=== PATIENT | male | born 1965 | race Asian ===

== ENCOUNTER 2017-09-28 17:29 | Emergency (ER) | payer SELFPAY ==
[2017-09-28 17:34] VITALS: BP 152/85
--- NOTE | 2017-09-28 20:45 | Emergency Department Report ---
ED Medical Clearance HPI - General Chief complaint: Medical Clearance Stated complaint: BLOOD PRESSURE HIGH Time Seen by Provider: 09/28/17 20:25 Source: patient Mode of arrival: Ambulatory - History of Present Illness Initial comments: Patient presents for medication refill for metoprolol amlodipine patient denies symptoms at this time states this medication vital signs noted BP 153/87 there' s no headache no dizziness or lightheadedness no chest pain or shortness of breath no nausea vomiting patient patient is a and O 3 and with steady gait patient has PCP however has been unable to get in for plan we'll refill medications as requested for 2 weeks until he can get into his PCP Onset/Timin -: days(s) Place: home Alledged Intoxication: No Compliant with Home Medications: No Traumatic Symptoms: denies traumatic injury Associated Symptoms: denies: chest pain, shortness of breath, palpitations, diaphoresis, denies other symptoms, confusion, cough, fever/chills, headaches, anorexia, malaise, nausea/vomiting, rash, seizure, syncope, weakness Treatments Prior to Arrival: none Home medications: Previous Rx's Medication Instructions Recorded Last Taken Type Metoprolol [Lopressor TAB] 12.5 mg PO BID #30 tablet 09/28/17 Unknown Rx amLODIPine [Norvasc] 5 mg PO DAILY #30 tab 09/28/17 Unknown Rx Allergies/Adverse reactions: Allergies Allergy/AdvReac Type Severity Reaction Status Date / Time No Known Allergies Allergy Unverified 09/28/17 17:34 ED Review of Systems ROS: Stated complaint: BLOOD PRESSURE HIGH Other details as noted in HPI Constitutional: denies: chills, fever Eyes: denies: eye pain, eye discharge, vision change ENT: denies: ear pain, throat pain Respiratory: denies: cough, shortness of breath, wheezing Cardiovascular: denies: chest pain, palpitations Endocrine: no symptoms reported Gastrointestinal: denies: abdominal pain, nausea, diarrhea Genitourinary: denies: urgency, dysuria Musculoskeletal: denies: back pain, joint swelling, arthralgia Skin: denies: rash, lesions Neurological: denies: headache, weakness, paresthesias Psychiatric: denies: anxiety, depression Hematological/Lymphatic: denies: easy bleeding, easy bruising ED Past Medical Hx - Past Medical History Previous Medical History?: Yes Hx Hypertension: Yes - Surgical History Past Surgical History?: No - Social History Smoking Status: Current Every Day Smoker Substance Use Type: None - Medications Home Medications: Home Medications Medication Instructions Recorded Confirmed Last Taken Type Metoprolol [Lopressor TAB] 12.5 mg PO BID #30 tablet 09/28/17 Unknown Rx amLODIPine [Norvasc] 5 mg PO DAILY #30 tab 09/28/17 Unknown Rx ED Physical Exam - General Limitations: No Limitations General appearance: alert, in no apparent distress - Head Head exam: Present: atraumatic, normocephalic - Eye Eye exam: Present: normal appearance - ENT ENT exam: Present: mucous membranes moist - Neck Neck exam: Present: normal inspection - Respiratory Respiratory exam: Present: normal lung sounds bilaterally. Absent: respiratory distress - Cardiovascular Cardiovascular Exam: Present: regular rate, normal rhythm. Absent: systolic murmur, diastolic murmur, rubs, gallop - GI/Abdominal GI/Abdominal exam: Present: soft - Rectal Rectal exam: Present: deferred - Extremities Exam Extremities exam: Present: normal inspection - Back Exam Back exam: Present: normal inspection - Neurological Exam Neurological exam: Present: alert, oriented X3 - Psychiatric Psychiatric exam: Present: normal affect, normal mood - Skin Skin exam: Present: warm, dry, intact, normal color. 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
== END 2017-09-28 20:51 | disposition home or self-care (01) ==
LOC: ED 17:29
DX: I10 Essential (primary) hypertension (principal); Z76.0 Encounter for issue of repeat prescription; F17.200 Nicotine dependence, unspecified, uncomplicated
CPT/HCPCS: 99282

== ENCOUNTER 2019-03-25 15:35 | Emergency (ER) | payer SELFPAY ==
--- NOTE | 2019-03-25 16:55 | Emergency Department Report ---
Chief Complaint: Headache Stated Complaint: HBP Time Seen by Provider: 03/25/19 16:50 - HPI History of Present Illness: 53 y/o male here for med refill and chronic htn was at a job screening and found to have sbp 160 was told he couldnt work unless bp < 130 asa 81 clonidine 0.1 mg po bid toprol 25 mg po bid lipitor 20 mg po qhs no other complaints exam wnl walks with steady gait screened out opts to continues discussed outpatient options 98.0 f 92 bpm hr 99% on room air o2 sat rr: 20 bpm 142/99 S1, S2, regular rate and rhythm. No murmurs, rubs or gallops. Breath sounds clear to auscultation bilaterally. Abdomen soft and benign, with no rebound, guarding or peritoneal signs. Head is normocephalic atraumatic. The neck is supple. There is no adenopathy. Extraocular movements are intact. there is no facial droop. The tongue is midline. The extraocular movements are intact bilaterally. Hearing is intact. Phonation is within normal limits. Speech is fluid and luccid. There is 5 out of 5 strength in 4 extremities. Sensation is intact to light touch in 4 extremities. in. There is a normal gait. MSE screening note: Focused history and physical exam performed. Due to findings the following was ordered: ED Disposition for MSE Clinical Impression: Medication refill, Chronic hypertension Disposition: Z-01 MED SCREENING EXAM-CONT Is pt being admited?: No Does the pt Need Aspirin: No Condition: Stable Additional Instructions: take thew medications aS DIRECTED FOLLOW UP WITH A PMD WITHIN 2-3 WEEKS AVOID CAFFEINE RETURN TO ER RIGHT AWAY WITH NEW WORSE OF DIFFERENT SYMPTOMS EXERCISE TOLERATED Prescriptions: cloNIDine [Catapres] 0.1 mg PO QHS #14 tablet AtorvaSTATin [Lipitor] 20 mg PO QHS #14 tab Aspirin [Aspirin BABY CHEW TAB] 81 mg PO QDAY #14 tab.chew Metoprolol [Lopressor TAB] 25 mg PO BID #28 tablet Referrals: SULAIMAN PHELPS MD [Staff Physician] - as needed [facility] [Provider Group] - as needed [facility] [Provider Group] - as needed
== END 2019-03-25 17:00 | disposition home or self-care (01) ==
LOC: ED 15:35
DX: I10 Essential (primary) hypertension (principal); Z76.0 Encounter for issue of repeat prescription
CPT/HCPCS: 99281

== ENCOUNTER 2021-07-06 20:02 | Emergency (ER) | payer SELFPAY ==
[2021-07-06 20:22] VITALS: BP 128/79
== END 2021-07-07 02:15 | disposition left against medical advice (07) ==
LOC: ED 20:02
DX: Z04.1 Encounter for examination and observation following transport accident (principal); Z53.21 Procedure and treatment not carried out due to patient leaving prior to being seen by health care provider; V89.2XXA Person injured in unspecified motor-vehicle accident, traffic, initial encounter; Y93.89 Activity, other specified; Y92.89 Other specified places as the place of occurrence of the external cause; Y99.8 Other external cause status